=== PATIENT | male | born 1965 | race Caucasian/White ===

== ENCOUNTER → 2023-08-02 | Outpatient (CLI) | payer OTHER ==
--- NOTE | 2023-08-02 11:52 | XR ---
EXAMINATION TYPE: XR knee limited RT DATE OF EXAM: 08/02/2023 COMPARISON: NONE HISTORY: pain TECHNIQUE: Three views are submitted. FINDINGS: Joint spaces are preserved. Osseous structures are intact. No acute fracture seen. The suprapatell ar bursa fluid. Vascular calcifications noted. IMPRESSION: 1. No acute fracture or dislocation. Moderate suprapatellar bursal fluid collection which can be ass ociated with internal derangement of the knee.
--- NOTE | 2023-08-02 11:54 | XR ---
EXAMINATION TYPE: XR foot limited LT DATE OF EXAM: 08/02/2023 COMPARISON: NONE HISTORY: Pain TECHNIQUE: Two views are submitted. FINDINGS: The osseous structures are intact. There is no acute fracture or dislocation. Diffuse osteopenia w ith moderate arthropathy first MTP. No erosive changes. Tiny plantar calcaneal spur.. Sclerosis of th e base of the metatarsal. IMPRESSION: 1. 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 Images sclerosis based metatarsal can occasionally be associated with stress injury. If point tender in this area correlating with bone scan
== END | disposition home or self-care (01) ==
LOC: RADXRMAIN 11:27
PROVIDERS: ATTEND Family Medicine
DX: M23.91 Unspecified internal derangement of right knee (principal); M12.872 Other specific arthropathies, not elsewhere classified, left ankle and foot; M25.761 Osteophyte, right knee; M79.672 Pain in left foot; M25.461 Effusion, right knee; M85.872 Other specified disorders of bone density and structure, left ankle and foot